=== PATIENT | female | born 1995 | race Caucasian/White ===

== ENCOUNTER 2020-03-25 19:50 | Emergency (ER) | payer MEDICAID, SELFPAY ==
--- NOTE | ~2020-03-25 | CT_ITS ---
EXAMINATION: CT abdomen pelvis w con EXAM DATE: 03/25/2020 21:01 INDICATION: Abdominal pain, bloody diarrhea. TECHNIQUE: Spiral CT of the abdomen and pelvis was performed following intravenous injection of 100 m L Omnipaque 350. Axial, coronal and sagittal images were reviewed. The dose-length product (DLP) fo r this examination was 1060.30 mGy-cm. The exposure was tailored according to patient size (auto mA exposure control), and iterative reconstruction (ASIR) was used as additional dose reduction techniqu e. There is no prior study for comparison. FINDINGS: The liver, spleen, adrenal glands and pancreas are unremarkable. Gallbladder is unremarkab le. No biliary obstruction. Portal and splenic veins are patent. Kidneys enhance symmetrically. T here is no hydronephrosis. The uterus is anteverted and morphologically normal. The bladder is un remarkable. There is no retroperitoneal or pelvic lymphadenopathy. The appendix is normal. The stomach and small bowel are unremarkable. There is no colonic wall thick ening. There is expected amount of colonic stool. No free intraperitoneal gas. The heart is festus l in size. There are no pericardial or pleural effusions. The lung bases are unremarkable. The bon es are normal. IMPRESSION: 1. No acute intra-abdominal findings. Reviewed, dictated and finalized at location A.
[2020-03-25 19:51] VITALS: BP 138/89; PULSE 83; RESP 22; TEMP 36.8; O2SAT 100
--- NOTE | 2020-03-25 19:58 | ED.ABDPAIN ---
HPI - Abdominal Pain General Chief Complaint: Abdominal Pain Stated Complaint: abd pain Time Seen by Provider: 03/25/20 19:51 Source: patient and family Mode of arrival: ambulatory Limitations: no limitations History of Present Illness HPI narrative: Patient is a 24-year-old female who presents for evaluation of abdominal pain and diarrhea. Patient reports that she has had a 6-month history of daily diarrhea, very watery stools, intermittent blood and mucus present in the stool. Patient denies fever, chills, weight loss. She reports intermittent cramping abdominal pain without radiation to the back or lower pelvis. They do not seem to coincide with her menstrual cycle. Patient does not believe she is . She denies dysuria or hematuria. Patient states that her father was sick with metastatic melanoma and recently , so she had been focusing on taking care of him. She has no primary care provider. No history of ulcerative colitis, Crohn's disease, irritable bowel disease in her family that she is aware of. No recent travel or food indiscretions. No unclean water sources. No recent camping. Patient states that she is able to tolerate oral intake, sometimes spicy foods or foods with dairy seem to worsen her symptoms. Related Data Allergies Allergy/AdvReac Type Severity Reaction Status Date / Time Penicillins Allergy Unknown Rash Verified 03/25/20 21:00 Review of Systems Review of Systems: Narrative: CONSTITUTIONAL: Denies fever, chills, or sweats. CARDIOVASCULAR: Denies chest pain, palpitations, or edema. RESPIRATORY: Denies cough or dyspnea. GASTROINTESTINAL: Reports abdominal pain, diarrhea GENITOURINARY: Denies dysuria or hematuria. SKIN: Denies rash or itching. MUSCULOSKELETAL: Denies back pain, joint pain, or myalgia. NEUROLOGIC: Denies headache, numbness, or weakness. [facility] Past Medical History Medical History (Updated 03/25/20 @ 21:23 by Stefany Rubio MD) Ovarian cyst Surgical History Surgical History (Updated 03/25/20 @ 19:59 by Stefany Rubio MD) No pertinent past surgical history Social History Social History (Updated 03/25/20 @ 20:11 by Stefany Rubio MD) Smoking status: Never smoker Alcohol intake: never Substance use: current Substance use type: marijuana Living arrangements: with family Gender identity (if verbalized by the patient): Female Exam Narrative: Exam Narrative: GENERAL: Awake, alert, conversant HEAD: Normocephalic, atraumatic. EYES: PERRLA and EOMI. ENT: Nares clear, no rhinorrhea or epistaxis. Mucous membranes moist. NECK: Supple. CHEST: No respiratory distress, breathing even and non labored HEART: Regular rate, sinus rhythm ABDOMEN:Non distended, non tender, no guarding EXTREMITIES: Normal range of motion. No edema. SKIN: Warm, dry, no rash. NEURO:No focal deficits. Alert and oriented x3. Ambulatory with a narrow based steady gait. Course Vital Signs Vital signs: Vital Signs Temperature 36.8 C 03/25/20 19:51 Pulse Rate 83 03/25/20 19:51 Respiratory Rate 22 H 03/25/20 19:51 Blood Pressure 138/89 03/25/20 19:51 Pulse Oximetry 100 03/25/20 19:51 Temperature 36.8 C 03/25/20 19:51 Pulse Rate 83 03/25/20 19:51 Respiratory Rate 22 H 03/25/20 19:51 Blood Pressure 138/89 03/25/20 19:51 Pulse Oximetry 100 03/25/20 19:51 MDM - Abdominal Pain MDM Narrative Medical decision making narrative: Patient presented for evaluation of chronic abdominal pain, intermittently bloody mucousy stools as well as diarrhea. At the time of initial assessment, ABCs are intact, vital signs are stable. Patient is well-appearing without peritoneal signs on exam. Patient's abdomen is soft without significant pain or signs of surgical abdomen on serial exams. Lab and imaging evaluations are reviewed and patient is felt to be a reasonable candidate for outpatient management. Patient with stable laboratory results, no leukocytosi
[2020-03-25 20:31] LABS: Basophils Percent Auto 0.6 % (0.2-1.2); Eosinophils Absolute Auto 0.1 K/mm3 (0-0.3); Hematocrit 37.5 % (37.0-47.0); Hemoglobin 12.7 g/dL (12.0-15.0); Immature Granulocyte Absolute 0.01 K/mm3 (0.00-0.031); Immature Granulocyte Percent A 0.2 % (0-0.5); Lymphocytes Absolute Auto 1.83 K/mm3 (0.9-3.2); Mean Corpuscular HGB Conc 33.9 g/dl (32-36); Mean Corpuscular Hemoglobin 29.8 pg (26-34); Monocytes Absolute Auto 0.7 K/mm3 (0.1-0.6); Monocytes Percent Auto 10.1 % (2.6-8.5); Neutrophils Absolute Auto 3.9 K/mm3 (1.3-6.7); Neutrophils Percent Auto 59.1 % (45.5-73.1); Platelet Count Result 284 k/mm3 (150-375); Red Blood Count 4.26 M/mm3 (4.2-5.4); Red Cell Distribution Width 11.9 % (11.5-14.5); White Blood Count 6.5 K/mm3 (4.5-10.0)
[2020-03-25 20:44] LABS: Alanine Aminotransferase 21 U/L (4-35); Albumin Level 4.4 g/dL (3.5-5.1); Alkaline Phosphatase 80 U/L (38-126); Aspartate Amino Transferase 23 U/L (14-36); Bilirubin,Total 0.3 mg/dL (0.2-1.3); Blood Urea Nitrogen 13 mg/dL (7-17); Calcium 9.5 mg/dL (8.4-10.2); Carbon Dioxide 26 mmol/L (22-30); Chloride 107 mmol/L (98-107); Estimated CRCL calculation 139 ml/min; Estimated Glomerular Filt Rate > 60; Glucose 95 mg/dL (65-105); Potassium 4.1 mmol/L (3.4-5.0); Sodium 140 mmol/L (137-145)
[2020-03-25] MEDS: SODIUM CHLORIDE 0.9% IV 1,000 ML 999 ML IV CONT (20:44)
[2020-03-25] MEDS: MORPHINE SULFATE 4 MG/ML INJ IV PUSH (20:45)
[2020-03-25] MEDS: ONDANSETRON INJ 4 MG/2 ML VIAL IV PUSH (20:45)
--- NOTE | 2020-03-25 21:04 | PC.NURSE ---
Patient returned from CT scan
[2020-03-25 22:25] VITALS: BP 134/75; PULSE 69; RESP 18; O2SAT 95
== END 2020-03-25 23:18 | disposition home or self-care (01) ==
PROVIDERS: Emergency Provider Emergency Medicine
DX: R10.84 Generalized abdominal pain (principal); R19.7 Diarrhea, unspecified
CPT/HCPCS: 36415; 74177; 80053; 81025; 85025; 96361; 96374; 96375; 99284; J2270; J2405; J7030; Q9967

== ENCOUNTER 2020-07-26 19:40 | Emergency (ER) | payer OTHER, SELFPAY ==
[2020-07-26 19:47] VITALS: BP 133/83; PULSE 84; RESP 17; TEMP 36.2; O2SAT 99
[2020-07-26 19:59] LABS: Basophils Absolute Auto 0.1 K/mm3 (0.0-0.1); Basophils Percent Auto 0.7 % (0.2-1.2); Eosinophils Absolute Auto 0.1 K/mm3 (0-0.3); Eosinophils Percent Auto 1.1 % (0-4.4); Hematocrit 39.1 % (37.0-47.0); Hemoglobin 13.4 g/dL (12.0-15.0); Immature Granulocyte Absolute 0.01 K/mm3 (0.00-0.031); Immature Granulocyte Percent A 0.1 % (0-0.5); Lymphocytes Absolute Auto 2.41 K/mm3 (0.9-3.2); Lymphocytes Percent Auto 33.1 % (18.3-44.2); Mean Corpuscular HGB Conc 34.3 g/dl (32-36); Mean Corpuscular Hemoglobin 29.4 pg (26-34); Mean Corpuscular Volume 85.7 fl (80-100); Mean Platelet Volume 10.5 fl (7.4-10.4); Monocytes Absolute Auto 0.6 K/mm3 (0.1-0.6); Monocytes Percent Auto 8.1 % (2.6-8.5); Neutrophils Absolute Auto 4.1 K/mm3 (1.3-6.7); Neutrophils Percent Auto 56.9 % (45.5-73.1); Platelet Count Result 358 k/mm3 (150-375); Red Blood Count 4.56 M/mm3 (4.2-5.4); Red Cell Distribution Width 11.8 % (11.5-14.5); White Blood Count 7.3 K/mm3 (4.5-10.0)
[2020-07-26 20:09] LABS: Partial Thromboplastin Time 27.7 SECONDS (22.3-36.8)
[2020-07-26 20:11] LABS: Alanine Aminotransferase 58 U/L (4-35); Alkaline Phosphatase 71 U/L (38-126); Anion Gap 10 mmol/L (8-16); Aspartate Amino Transferase 37 U/L (14-36); Bilirubin,Total 0.5 mg/dL (0.2-1.3); Blood Urea Nitrogen 15 mg/dL (7-17); Calcium 9.6 mg/dL (8.4-10.2); Carbon Dioxide 23 mmol/L (22-30); Chloride 106 mmol/L (98-107); Estimated CRCL calculation 137 ml/min; Estimated Glomerular Filt Rate > 60; Glucose 93 mg/dL (65-105); Potassium 3.9 mmol/L (3.4-5.0); Sodium 139 mmol/L (137-145)
--- NOTE | 2020-07-26 22:09 | ED.ABDPAIN ---
HPI - Abdominal Pain General Chief Complaint: Abdominal Pain Stated Complaint: abd pain Time Seen by Provider: 07/26/20 21:38 Source: patient Mode of arrival: ambulatory Limitations: no limitations History of Present Illness HPI narrative: This patient is a 24 year old female who presents for evaluation of abdominal pain and bloody diarrhea. She reports she has been having diarrhea for 4 months. She was evaluated in ER and she was referred to GI, but she has been unable to follow up with GI because they do not accept her insurance. Today she reports she started having bloody diarrhea at 4 pm , and her last episode was at 6 pm. She also reports mid abdominal pain with nausea and vomiting. She takes tums for heart burn. She denies fever or chills. Related Data Allergies Allergy/AdvReac Type Severity Reaction Status Date / Time Penicillins Allergy Unknown Rash Verified 07/26/20 19:51 Review of Systems Review of Systems: All systems reviewed & are unremarkable except as noted in HPI and below Constitutional: Constitutional: Denies chills and Denies fever(s) Gastrointestinal: Gastrointestinal: Reports abdominal pain, Reports diarrhea, Reports nausea and Reports vomiting PMFSH Past Medical History Medical History (Updated 07/27/20 @ 00:06 by Reyna Coon MD) Ovarian cyst Surgical History Surgical History (Updated 03/25/20 @ 19:59 by Stefany Rubio MD) No pertinent past surgical history Social History Social History (Updated 03/25/20 @ 20:11 by Stefany Rubio MD) Smoking status: Never smoker Alcohol intake: never Substance use: current Substance use type: marijuana Gender identity (if verbalized by the patient): Female Exam Narrative: Exam Narrative: GENERAL: Well-appearing, well-nourished, and in no acute distress. HEAD: Normocephalic, atraumatic EYES: PERRLA and EOMI, conjunctiva clear without discharge THROAT:Mucous membranes moist, NECK: Supple, without lymphadenopathy or mass RESPIRATORY: No respiratory distress, Airway patent, Respirations non-labored, Clear to auscultation without rales, rhonchi or wheeze HEART: Regular rate and rhythm. No murmur heard. Normal peripheral pulses. ABDOMEN: Soft,LLQ, nondistended, normal active bowel sounds. No masses. No rebound or guarding, No organomegaly. rectal exam shows external hemorrhoids with no active bleeding. EXTREMITIES: No edema, normal strength with full range of motion. SKIN: Warm, dry, normal color without rash NEURO: Alert and oriented x3. CN 2-12 grossly intact. No focal deficits. PSYCH: Normal mood and affect. Course Reevaluation(s) Reevaluation #1: PAtient states she feels better after GI cocktail. Her CBC is normal. I saw she was here in February for the same thing. She had a CT scan that was unremarkable. Since labs are normal I will not repeat CT. She will continue to try to follow up with GI. Date: 07/27/20 Time: 00:03 Vital Signs Vital signs: Vital Signs Temperature 97.2 F L 07/26/20 19:47 Pulse Rate 84 07/26/20 19:47 Respiratory Rate 17 07/26/20 19:47 Blood Pressure 133/83 07/26/20 19:47 Pulse Oximetry 99 07/26/20 19:47 Temperature 97.2 F L 07/26/20 19:47 Pulse Rate 62 07/27/20 00:43 Respiratory Rate 16 07/27/20 00:43 Blood Pressure 125/81 07/27/20 00:43 Pulse Oximetry 99 07/27/20 00:43 MDM - Abdominal Pain Lab Data Result diagrams: 07/26/20 19:53 07/26/20 19:53 Labs: Lab Results 07/26/20 07/26/20 07/26/20 Range/Units 19:53 19:53 19:53 WBC 7.3 (4.5-10.0) K/mm3 RBC 4.56 (4.2-5.4) M/mm3 Hgb 13.4 (12.0-15.0) g/dL Hct 39.1 (37.0-47.0) % MCV 85.7 (80-100) fl MCH 29.4 (26-34) pg MCHC 34.3 (32-36) g/dl RDW 11.8 (11.5-14.5) % Plt Count 358 (150-375) k/mm3 MPV 10.5 H (7.4-10.4) fl Immature Gran % (Auto) 0.1 (0-0.5) % Neut % (Auto) 56.9 (45.5-73.1) % Lymph % (Auto) 33.1
[2020-07-26] MEDS: LACTATED RINGERS 1,000 ML 999 ML IV CONT (22:47)
[2020-07-26] MEDS: PANTOPRAZOLE SODIUM IV 40 MG VIAL IV PUSH (22:48)
[2020-07-26] MEDS: ONDANSETRON INJ 4 MG/2 ML VIAL IV PUSH (22:48)
[2020-07-26 22:58] VITALS: BP 127/77; PULSE 80; RESP 16; O2SAT 99
[2020-07-26] MEDS: BELLADONNA ALK/PHENOB ELIX 10 ML, MAG HYDROX/ALUMINUM HYD/SIMETH 30 ML, LIDOCAINE HCL 2... PO (23:27)
[2020-07-26 23:41] VITALS: BP 143/75; PULSE 65; RESP 18; O2SAT 99
--- NOTE | 2020-07-27 00:03 | PC.NURSE ---
pt states pain has subsided after getting gi cocktail. notified.
[2020-07-27 00:43] VITALS: BP 125/81; PULSE 62; RESP 16; O2SAT 99
== END 2020-07-27 00:43 | disposition home or self-care (01) ==
PROVIDERS: Family Medicine; Emergency Provider General Practice
DX: R10.13 Epigastric pain (principal); K62.5 Hemorrhage of anus and rectum
CPT/HCPCS: 36415; 80053; 85025; 85610; 85730; 86850; 86900; 86901; 96361; 96374; 96375; 99284; A9270; C9113; J2405; J7120

== ENCOUNTER 2021-03-19 14:32 | Emergency (ER) | payer OTHER, SELFPAY ==
[2021-03-19 14:41] VITALS: BP 144/89; PULSE 97; RESP 20; TEMP 36.1; O2SAT 100
[2021-03-19 14:53] LABS: Basophils Percent Auto 0.7 % (0.2-1.2); Eosinophils Absolute Auto 0.1 K/mm3 (0-0.3); Eosinophils Percent Auto 1.6 % (0-4.4); Hematocrit 39.4 % (37.0-47.0); Hemoglobin 13.6 g/dL (12.0-15.0); Immature Granulocyte Absolute 0.02 K/mm3 (0.00-0.031); Immature Granulocyte Percent A 0.3 % (0-0.5); Lymphocytes Absolute Auto 1.74 K/mm3 (0.9-3.2); Lymphocytes Percent Auto 28.3 % (18.3-44.2); Mean Corpuscular HGB Conc 34.5 g/dl (32-36); Mean Corpuscular Hemoglobin 30.4 pg (26-34); Mean Corpuscular Volume 88.1 fl (80-100); Mean Platelet Volume 10.1 fl (7.4-10.4); Monocytes Absolute Auto 0.5 K/mm3 (0.1-0.6); Monocytes Percent Auto 8.6 % (2.6-8.5); Neutrophils Absolute Auto 3.7 K/mm3 (1.3-6.7); Neutrophils Percent Auto 60.5 % (45.5-73.1); Platelet Count Result 293 k/mm3 (150-375); Red Blood Count 4.47 M/mm3 (4.2-5.4); Red Cell Distribution Width 11.8 % (11.5-14.5); White Blood Count 6.1 K/mm3 (4.5-10.0)
[2021-03-19 15:06] LABS: Alanine Aminotransferase 29 U/L (4-35); Albumin Level 4.4 g/dL (3.5-5.1); Alkaline Phosphatase 57 U/L (38-126); Anion Gap 7 mmol/L (8-16); Aspartate Amino Transferase 29 U/L (14-36); Bilirubin,Total 0.4 mg/dL (0.2-1.3); Blood Urea Nitrogen 10 mg/dL (7-17); Calcium 9.1 mg/dL (8.4-10.2); Carbon Dioxide 27 mmol/L (22-30); Chloride 107 mmol/L (98-107); Estimated CRCL calculation 144 ml/min; Estimated Glomerular Filt Rate > 60; Glucose 92 mg/dL (65-105); Lipase 39 U/L (23-300); Potassium 4.4 mmol/L (3.4-5.0); Sodium 141 mmol/L (137-145)
[2021-03-19 15:30] LABS: Add Urine Microscopic? YES; Appearance Urine Cloudy (Clear); Bacteria Urine Trace /hpf; Bilirubin Urine Negative (Negative); Blood Urine Negative (Negative); Color Urine Yellow (Yellow); Glucose Urine UA Negative (Negative); Ketones Urine Negative (Negative); Leukocyte Esterase Ur 2+ LEU/UL (Negative); Mucus Urine Rare /lpf; Nitrate Urine Negative (Negative); Protein Urine Negative (Negative); Specific Grav Ur 1.013 (1.001-1.035); Squamous Epithelial Cell Urine Many /hpf (Few); Urobilinogen Urine Negative mg/dL (<2.0)
--- NOTE | 2021-03-19 16:24 | ED.GENADULT ---
HPI - General Adult General Chief complaint: Abdominal Pain Stated complaint: abd pain Time Seen by Provider: 03/19/21 16:02 Source: patient History of Present Illness HPI narrative: Patient is a 25 y/o female complaining of generalized abdominal pain for last 2 days. She describes her pain as sharp and burning and rates it as 8/10. There is no pain radiation. She took Tums which did not help. She states that she had similar pain intermittently for last several years. She has some nausea, vomiting. She also has some vaginal irritation and discharge. She states that she has not been sexually active for while. She denies any known exposure to STD. Related Data Allergies Allergy/AdvReac Type Severity Reaction Status Date / Time Penicillins Allergy Unknown Rash Verified 03/19/21 16:07 Review of Systems Constitutional: Constitutional: Denies chills, Denies fever(s), Denies headache(s) and Denies weakness Eyes: Eyes: Denies blurry vision ENT: Denies headache(s) and Denies neck pain Cardiovascular: Cardiovascular: Denies chest pain and Denies dyspnea Respiratory: Respiratory: Denies cough and Denies dyspnea Gastrointestinal: Gastrointestinal: Reports abdominal pain, Reports diarrhea, Reports nausea and Reports vomiting Genitourinary: Genitourinary: Denies hematuria, Denies dysuria, Reports vaginal discharge and Reports vaginal pruritus Musculoskeletal: Musculoskeletal: Denies back pain and Denies neck pain Neurologic: Denies headache(s) and Denies weakness PMFSH Past Medical History Medical History Ovarian cyst Surgical History Surgical History No pertinent past surgical history Social History Social History Smoking status: Never smoker Alcohol intake: never Substance use: current Substance use type: marijuana Gender identity (if verbalized by the patient): Female Exam Const: General: no acute distress and well developed Orientation/consciousness: oriented to person, oriented to place, oriented to time and patient oriented x3 HENMT: Head: normocephalic Ears: external ears normal General nose exam: Normal external nose present Eyes: General: appearance normal, both eyes and all related structures Conjunctivae: conjunctivae normal Neck: Neck: normal visual inspection and full ROM Chest: Chest palpation & inspection: normal inspection of the chest and no tenderness Resp: Effort & Inspection: normal respiratory effort Auscultation: clear to auscultation bilaterally Cardio: Rate: regular rate Rhythm: regular rhythm GI: GI Palp: No abdominal tenderness and Yes Soft to palpation : External Female Exam: normal external appearance Speculum Exam - Vagina: normal appearance of the vagina and abnormal vaginal discharge (white discharge suggesting yeast infection) Speculum Exam - Cervix: normal appearance of the cervix Skin: General skin exam: normal color and turgor normal Neuro: General: oriented to person, oriented to place, oriented to time and patient oriented x3 Cognition (Neuro): normal cognition Extrem: General: normal to inspection, full ROM and no pedal edema Psych: Appearance: grossly normal Mental Status: mental status grossly normal Affect: normal affect Course Vital Signs Vital signs: Vital Signs Temperature 36.1 C L 03/19/21 14:41 Pulse Rate 97 03/19/21 14:41 Respiratory Rate 20 03/19/21 14:41 Blood Pressure 144/89 H 03/19/21 14:41 Pulse Oximetry 100 03/19/21 14:41 Temperature 36.1 C L 03/19/21 14:41 Pulse Rate 78 03/19/21 17:52 Respiratory Rate 18 03/19/21 17:52 Blood Pressure 130/76 03/19/21 17:52 Pulse Oximetry 100 03/19/21 17:52 Medical Decision Making Vital Signs Vital Signs: Vital Signs Temperature 36.1 C L 03/19/21 14:41 Pulse Rate 97 03/19/21 14:41 Respiratory Rate
--- NOTE | 2021-03-19 17:44 | PC.NURSE ---
ERP and tech at bedside for pelvic exam.
[2021-03-19 17:52] VITALS: BP 130/76; PULSE 78; RESP 18; O2SAT 100
[2021-03-19] MEDS: BELLADONNA ALK/PHENOB ELIX 10 ML, MAG HYDROX/ALUMINUM HYD/SIMETH 30 ML, LIDOCAINE HCL 2... PO (17:53)
== END 2021-03-19 18:27 | disposition home or self-care (01) ==
PROVIDERS: Emergency Medicine; Emergency Provider Emergency Medicine
DX: B37.3 Candidiasis of vulva and vagina (principal); R10.84 Generalized abdominal pain
CPT/HCPCS: 36415; 80053; 81001; 81025; 83690; 85025; 87070; 87491; 87591; 87808; 99284; A9270

== ENCOUNTER 2022-11-08 16:11 | Emergency (ER) | payer OTHER, SELFPAY ==
[2022-11-08 16:17] VITALS: BP 128/78; PULSE 80; RESP 16; TEMP 36.9; O2SAT 99
--- NOTE | 2022-11-08 19:17 | PC.NURSE ---
1917-PATIENT CALLED X 2 (1904 AND 1914) WITH NO ANSWER. CHARGE NURSE ADVISED.
== END 2022-11-08 19:25 | disposition left against medical advice (07) ==
DX: S19.9XXA Unspecified injury of neck, initial encounter (principal)
CPT/HCPCS: 99199

== ENCOUNTER 2023-09-03 13:26 | Emergency (ER) | payer OTHER, SELFPAY ==
--- NOTE | ~2023-09-03 | XR_ITS ---
XR ankle RT min 3V DATE: 09/03/2023 13:43 INDICATION: Ankle injury. Pain. [place] a pop. TECHNIQUE: 4 views COMPARISON: None FINDINGS: Mild lateral soft tissue swelling. No fracture or dislocation of the ankle or disruption of the ankle mortise is detected. IMPRESSION: Mild soft tissue swelling; no fracture or dislocation is detected Reviewed, dictated and finalized at location A.
[2023-09-03 13:29] VITALS: BP 143/72; PULSE 90; RESP 16; TEMP 36.6; O2SAT 97
--- NOTE | 2023-09-03 13:53 | ED.LOWEXIN ---
HPI - Extremity Injury (Lower) General Chief Complaint: Extremity Injury, Lower Stated Complaint: right ankle injury Time Seen by Provider: 09/03/23 13:45 History of Present Illness HPI Narrative: 27-year-old female reports for evaluation for right ankle pain after she twisted it last night. Patient states she was walking dark alley on uneven concrete when she accidentally inverted her R ankle and fell to the ground. Denies hitting her head or LOC, denies other injuries. States she has pain over the lateral malleolus has been limping around at home. No fever or vomiting, no paresthesias Related Data Allergies Allergy/AdvReac Type Severity Reaction Status Date / Time Penicillins Allergy Unknown Rash Verified 03/19/21 16:07 Review of Systems Review of Systems: CONSTITUTIONAL: Denies fever, chills EYES: Denies visual changes, redness, or discharge. ENT: Denies rhinorrhea, congestion, sore throat, or otalgia. CARDIOVASCULAR: Denies chest pain, palpitations, or edema. RESPIRATORY: Denies cough or dyspnea. GASTROINTESTINAL: Denies abdominal pain, nausea, vomiting, or diarrhea. GENITOURINARY: Denies dysuria or hematuria. SKIN: Denies rash or itching. MUSCULOSKELETAL: See HPI NEUROLOGIC: Denies headache, numbness, dizziness, or weakness. PSYCHIATRIC: Denies anxiety or depression. [facility] Past Medical History Medical History Ovarian cyst Surgical History Surgical History No pertinent past surgical history Social History Social History Smoking status: Never smoker Alcohol intake: never Substance use: current Substance use type: marijuana Living arrangements: with family Gender identity (if verbalized by the patient): Female Exam Narrative: GENERAL: Well-appearing, in no acute distress. HEAD: Normocephalic NECK: Supple. CHEST: No respiratory distress. Clear to auscultation, no adventitious breath sounds. HEART: Regular rate and rhythm. No murmur heard. Normal peripheral pulses. EXTREMITIES: RLE: Tenderness and edema to the lateral malleolus. No overlying ecchymosis, erythema or other skin changes. No tenderness to the remainder of the lower extremity including the proximal tibia or fibula. Negative high squeeze. Full range of motion of toes. Limited range of motion of ankle secondary to pain. DP pulse 2+. Sensation intact throughout. Cap refill less than 2. SKIN: Warm, dry, no rash. NEURO: No focal deficits. Alert and oriented x3. PSYCH: Normal mood and affect. Course Vital Signs Vital signs: Vital Signs Temperature 98 F 09/03/23 13:29 Pulse Rate 90 09/03/23 13:29 Respiratory Rate 16 09/03/23 13:29 Blood Pressure 143/72 H 09/03/23 13:29 Pulse Oximetry 97 09/03/23 13:29 Oxygen Delivery Room Air 09/03/23 13:29 Temperature 98 F 09/03/23 13:29 Pulse Rate 90 09/03/23 13:29 Respiratory Rate 16 09/03/23 13:29 Blood Pressure 143/72 H 09/03/23 13:29 Pulse Oximetry 97 09/03/23 13:29 Oxygen Delivery Room Air 09/03/23 13:29 MDM - Extremity Injury (Lower) MDM Narrative Medical decision making narrative: 27 y/o F reports for evaluation for right ankle pain after she twisted her last night. See HPI for further history. Vitals stable mildly elevated blood pressure. She is well-appearing on exam. Exam significant for the above. She is neurovascularly intact. X-rays show no acute osseous abnormality. Imaging discussed. Plan to treat her as an ankle sprain.medications, Madhav wrap and crutches provided. Encouraged Tylenol and ibuprofen. Follow-up with PCP. Strict ED return precautions discussed. She is agreeable to plan verbalized understanding. Discharged in stable condition. Medical Records Attestation: I reviewed the patient's medical records. Imaging Data Radiologist's impress
[2023-09-03] MEDS: HYDROcodone/acetaminophen (*CRX) 5-325 MG TABLET 1 TAB PO (14:19)
== END 2023-09-03 14:32 | disposition home or self-care (01) ==
PROVIDERS: Emergency Provider Physician Assistant
DX: S93.401A Sprain of unspecified ligament of right ankle, initial encounter (principal); S96.911A Strain of unspecified muscle and tendon at ankle and foot level, right foot, initial encounter; X50.9XXA Other and unspecified overexertion or strenuous movements or postures, initial encounter
CPT/HCPCS: 73610; 99283; A9270

== ENCOUNTER 2024-03-15 21:03 | Emergency (ER) | payer OTHER, SELFPAY ==
[2024-03-15 21:16] VITALS: BP 135/95; PULSE 91; RESP 20; TEMP 36.3; O2SAT 98
[2024-03-15 21:47] LABS: Appearance Urine Cloudy (Clear); Bacteria Urine 1+ /hpf; Bilirubin Urine Negative (Negative); Blood Urine 3+ (Negative); Color Urine Yellow (Yellow); Glucose Urine UA Negative (Negative); Ketones Urine 1+ mg/dL (Negative); Leukocyte Esterase Ur 1+ LEU/UL (Negative); Need Manual Microscopic Reviewed; Nitrate Urine Negative (Negative); Non Pathogenic Casts 0-2; Protein Urine 1+ mg/dL (Negative); RBC Urine >100 /hpf (0-2); Specific Grav Ur 1.023 (1.001-1.035); Squamous Epithelial Cell Urine Few /hpf (Few); WBC Urine 51-100 /hpf (0-3); pH Urine 5.5 (5.0-9.0)
[2024-03-15 21:48] LABS: Add Urine Microscopic? YES
--- NOTE | 2024-03-15 23:26 | ED.GENADULT ---
HPI - General Adult General Chief complaint: Unspecified Stated complaint: i think i have a tear on my vagina , burning Time Seen by Provider: 03/15/24 22:38 Source: patient Mode of arrival: ambulatory Limitations: no limitations History of Present Illness HPI narrative: Patient is a 28-year-old female who presents the ED with report of vaginal discomfort. Patient reports she is currently on her menstrual cycle and pulled out a tampon that was very dry 2 days ago. Since then, she has been having some vaginal discomfort with urination. She describes a burning with urination, reports only having the discomfort when urinating. Denies abnormal vaginal discharge. Denies abdominal or back pain. Denies known hematuria, she is still on her menstrual cycle. Denies fevers. Denies history of UTI, kidney stones. Denies concern for STDs. Related Data Allergies Allergy/AdvReac Type Severity Reaction Status Date / Time Penicillins Allergy Unknown Rash Verified 03/19/21 16:07 Review of Systems Review of Systems: CONSTITUTIONAL: Denies fever, chills, or sweats. GASTROINTESTINAL: Denies abdominal pain, nausea, vomiting. GENITOURINARY: See HPI. MUSCULOSKELETAL: Denies back pain, flank pain All systems reviewed & are unremarkable except as noted in HPI and below PMFSH Past Medical History Medical History Ovarian cyst Surgical History Surgical History No pertinent past surgical history Social History Social History Smoking status: Never smoker Alcohol intake: never Substance use: current Substance use type: marijuana Living arrangements: with family Gender identity (if verbalized by the patient): Female Exam Narrative: GENERAL: Well appearing, obese with BMI of 35.4, non-toxic, in no acute distress. HEAD: Normocephalic, atraumatic. RESPIRATORY: Airway patent, respirations nonlabored. CARDIOVASCULAR: Regular rate and rhythm ABDOMINAL: Soft, nontender, nondistended. Normoactive BS. PELVIC: Normal external genitalia. No genital lesions/blisters. Minimal tenderness surrounding urethra, no swelling or appreciable inflammation. Vaginal vault unremarkable, no evidence tears or skin irritation. Minimal light red/brown bleeding noted. Difficult to fully visualize cervix due to anatomy, but no significant CMT MUSCULOSKELETAL: Moves all extremities. No gross deformities. SKIN: Warm, dry, normal color. NEURO: A&O X3. Speech clear. PSYCHIATRIC: Appropriate mood and affect. Normal interaction. Course Vital Signs Vital signs: Vital Signs Temperature 97.4 F L 03/15/24 21:16 Pulse Rate 91 03/15/24 21:16 Respiratory Rate 20 03/15/24 21:16 Blood Pressure 135/95 H 03/15/24 21:16 Pulse Oximetry 98 03/15/24 21:16 Oxygen Delivery Room Air 03/15/24 21:16 Temperature 97.4 F L 03/15/24 21:16 Pulse Rate 94 03/15/24 23:37 Respiratory Rate 16 03/15/24 23:37 Blood Pressure 132/74 03/15/24 23:37 Pulse Oximetry 100 03/15/24 23:37 Oxygen Delivery Room Air 03/15/24 21:16 Medical Decision Making [facility] Narrative Medical decision making narrative: Patient presented to ED with 2 day history of dysuria, discomfort with urination. Vital signs are stable. Patient denying any abdominal or back pain. Denies fevers. No systemic signs of infection. Pelvic exam was unremarkable. No genital lesions, no evidence of yeast infection. Patient denies concern for STDs. at bedside. The patient did have some sensitivity around her urethra, but there were no vaginal tears or other abnormalities noted of the vaginal vault. Urine is consistent with infection with blood, 1+ leuk esterase, 51-100 WBC, 1+ urine bacteria. Will send for culture and treat. Will give Pyridium for dysuria. Patient is still on cycle, wh
[2024-03-15] MEDS: PHENAZOPYRIDINE HCL 100 MG TABLET 200 MG PO (23:31)
[2024-03-15] MEDS: CEPHALEXIN 500 MG CAPSULE PO (23:32)
[2024-03-15 23:37] VITALS: BP 132/74; PULSE 94; RESP 16; O2SAT 100
== END 2024-03-15 23:38 | disposition home or self-care (01) ==
PROVIDERS: Emergency Medicine; Emergency Provider Physician Assistant; PCP Nurse Practitioner Family
DX: N30.01 Acute cystitis with hematuria (principal)
CPT/HCPCS: 81001; 81025; 87077; 87086; 87088; 99283; A9270

== ENCOUNTER 2025-02-14 13:19 | Emergency (ER) | payer OTHER, SELFPAY ==
--- NOTE | 2025-02-14 13:25 | ED_ITS ---
HPI - Ear Problem General Chief complaint: Ear Stated complaint: Ears Irritation Time Seen by Provider: 02/14/25 13:25 Source: patient, RN notes reviewed and old records reviewed Mode of arrival: ambulatory Limitations: no limitations History of Present Illness HPI Narrative: Patient presents with complaints of right ear pain. She reports that she has had bilateral ear irritation for a few days. She states that yesterday began with right ear pain, states this has gotten significantly worse throughout the day today. She denies any injury or trauma. She reports she felt as though she was feverish last night. Took Tylenol with good relief. Related Data Home Medications ?Medication ?Instructions ?Recorded ?Confirmed ?Last Taken ?Type medroxyprogesterone 10 mg tablet mg 02/14/25 Unknown History Allergies Allergy/AdvReac Type Severity Reaction Status Date / Time Penicillins Allergy Unknown Rash Verified 02/14/25 13:21 Review of Systems Review of Systems: All systems reviewed & are unremarkable except as noted in HPI and below Constitutional: Constitutional: Reports no additional constitutional complaints and Reports fever(s) ENT: Reports system reviewed and no additional complaints, except as documented and Reports otalgia Cardiovascular: Cardiovascular: Reports no additional cardiovascular complaints Respiratory: Respiratory: Reports no additional respiratory complaints Gastrointestinal: Gastrointestinal: Reports no additional gastrointestinal complaints [facility] Past Medical History Medical History Ovarian cyst Surgical History Surgical History No pertinent past surgical history Social History Social History Smoking status: Never smoker Alcohol intake: never Substance use: current Substance use type: marijuana Living arrangements: with family Gender identity (if verbalized by the patient): Female Comments At the time of my signature, I reviewed and agree with the nursing past medical, surgical, social, and family history. There is no relevant family history pertinent to the patient complaint. Exam Const: General: cooperative, no acute distress, alert and awake Orientation/consciousness: oriented to person, oriented to place and oriented to time HENMT: Head: normal to inspection Ears: TM's normal bilaterally and Abnormal EAC present erythema on the right, edema on the right and EAC tenderness on the right Resp: Effort & Inspection: normal respiratory effort and able to speak in complete sentences Auscultation: clear to auscultation bilaterally, no crackles, no rales, no rhonchi and no wheezes Cardio: Palpation: normal PMI Rate: regular rate Rhythm: regular rhythm Heart sounds: S1 normal heart sound present and S2 normal heart sound present Neuro: General: oriented to person, oriented to place and oriented to time Cranial nerves: Yes CN's II-XII intact bilaterally Psych: Appearance: grossly normal Thought process: Normal thought process present Insight: Good insight present (Psych) Judgement: Good judgement present (Psych) Course Course Level of Care: Express Care Visit Vital Signs Vital signs: Reviewed Medical Decision Making MDM Narrative Medical decision making narrative: Discharge instructions reviewed with patient, as well as provided in writing per nursing staff. The instructions also include specific and strict return/GO TO THE ER as well as f/u information. All questions have been answered, and the patient deny any further questions with discharge and discharge plan. Some parts of this dictation were generated by voice recognition software and may contain typographical and/or grammatical inaccuracies. Vital Signs Vital Signs: reviewed Lab Data Lab results reviewed: Yes I reviewed the patient's lab results. Lab results narrative: reviewed Discharge Plan Discharge Clinical Impression: Otitis externa Qualifiers: Otitis externa type: unspecified type Chronicity: acute Laterality: right Qualified Code(s): H60.501 - Unspecified acute noninfective otitis externa, right ear Patient Disposition: Home, Self-Care Condition: Stable Instructions: Antibiotic Form, Swimmer's Ear (ED) Additional Instructions: Take medications as prescribed. Follow with primary care provider. Emergency department for new or worse symptoms Patient Language: Prydeinig Prescriptions: New ciprofloxacin-dexamethasone 0.3-0.1 % drops,suspension 4 drp EACH EAR Q12H 7 Days Qty: 7.5 0RF ciprofloxacin-dexamethasone 0.3-0.1 % drops,suspension 4 drp EACH EAR Q12H 7 Days Qty: 7.5 0RF No Action medroxyprogesterone 10 mg tablet Follow-up/Referrals: Gonzalez,Darlene Moody APN [Primary Care Provider] - 1 Week Stand Alone Forms: Work/School Release IP Time of Disposition: 13:36
[2025-02-14 13:28] VITALS: BP 154/87; PULSE 77; RESP 18; TEMP 36.5; O2SAT 99
== END 2025-02-14 13:40 | disposition home or self-care (01) ==
PROVIDERS: Emergency Provider Nurse Practitioner Family; PCP Nurse Practitioner Family
DX: H60.501 Unspecified acute noninfective otitis externa, right ear (principal)
CPT/HCPCS: 99213; G0463